=== PATIENT | male | born 1945 | race Caucasian/White ===

== ENCOUNTER 2018-04-16 13:04 | Emergency (ER) | payer MEDICARE, OTHER ==
[2018-04-16] MEDS ORDERED: IBUP-56 PO (13:34)
[2018-04-16] MEDS ORDERED: ZOLP-350 PO (13:34)
[2018-04-16] MEDS ORDERED: MELA1TAB2 PO (13:34)
[2018-04-16] MEDS ORDERED: TRAM-420 PO (13:34)
[2018-04-16] MEDS ORDERED: OXYC-823 PO (13:34)
[2018-04-16] MEDS ORDERED: SPIR1TAB28 PO (13:34)
[2018-04-16] MEDS ORDERED: ACET-1966 PO (13:34)
--- NOTE | 2018-04-16 13:38 | ER Report ---
History and Physical Time Seen By MD: 13:10 Hx. of Stated Complaint: PATIENT REPORTS THAT HE HAS BEEN SHORT OF BREATH FOR THE LAST 3-4 MONTHS AND IS DEALING WITH CHRONIC PAIN HPI/ROS CHIEF COMPLAINT: Not feeling well HISTORY OF PRESENT ILLNESS: 73-year-old male patient presents to emergency room via EMS with point not feeling well. Patient states when he gets here that he actually has no complaints at all. He states that he has pain to the right lower leg, right hip, right knee and back. Patient states that he has chronic pain for which he takes medicine for. He states that he was staying in bed just because he was having some pain and not feeling well. Patient was unaware that his family was calling EMS. He states he did not want to come to the emergency room. He denies having any fevers, chills, nausea, vomiting or diarrhea. Patient does have difficulty with breathing when he lays flat. Patient states that he did have hip surgery in December of this year. Patient currently rates his pain a 6 out of 10, he states his pain is typically a 5-7 out of 10. REVIEW OF SYSTEMS: Respiratory: No cough, no dyspnea. Cardiovascular: No chest pain, no palpitations. Gastrointestinal: No vomiting, no abdominal pain. Musculoskeletal: No back pain. Allergies: Coded Allergies: codeine (Verified Allergy, Unknown, 04/16/18) Home Meds Reported Medications Ibuprofen (IBUPROFEN) 200 Mg Tablet, 1 TAB PO Q6H, TAB 04/16/18 Acetaminophen (TYLENOL) 325 Mg Tablet, 325 MG PO, TAB 18 Melatonin/Pyridoxine Hcl (B6) (MELATONIN 10 MG TABLET) 1 Each Tab.mphase, 1 EACH PO 18 Spironolact/Hydrochlorothiazid (SPIRONOLACTONE-HCTZ 25-25 TAB) 1 Each Tablet, 1 EACH PO QDAY, TAB 04/16/18 Oxycodone Hcl (OXYCONTIN) 10 Mg Tab.er.12h, 10 MG PO, TAB 18 Zolpidem Tartrate (AMBIEN) 10 Mg Tablet, 1 TAB PO QHS, TAB 18 Tramadol Hcl (TRAMADOL HCL) 50 Mg Tablet, 50-100 MG PO Q4-6H, TAB 04/16/18 Past Medical/Surgical History Patient has a past medical history of hypertension, chronic back, knee and hip pain. Patient has a surgical history of right hip surgery. Reviewed Nurses Notes: Yes Hx Substance Use Disorder: No Hx Alcohol Use: No Constitutional Vital Sign - Last 24 Hours 04/16/18 04/16/18 04/16/18 04/16/18 13:04 13:06 13:08 13:27 Temp 98.8 Pulse 88 85 Resp 18 B/P (MAP) 139/81 (100) 139/81 Pulse Ox 89 92 O2 Delivery Room Air 04/16/18 04/16/18 04/16/18 04/16/18 13:30 13:34 14:00 14:04 Pulse 81 76 Resp 13 12 B/P (MAP) 110/65 (80) 117/73 (88) Pulse Ox 92 95 Physical Exam General Appearance: The patient is alert, has no immediate need for airway protection and no current signs of toxicity. Respiratory: Chest is non tender, lungs are clear to auscultation. Cardiac: regular rate and rhythm Gastrointestinal: Abdomen is soft and non tender, no masses, bowel sounds normal. Musculoskeletal: Neck: Neck is supple and non tender. Extremities have full range of motion and are non tender. Skin: No rashes or lesions. DIFFERENTIAL DIAGNOSIS: After history and physical exam differential diagnosis was considered forshortness of breath including but not limited to pulmonary infectious process, COPD, asthma, pulmonary embolus and congestive heart failure. Included in the differential is withdrawal from narcotics. Medical Decision Making Data Points Result Diagram: 04/16/18 1330 04/16/18 1330 Laboratory Hematology Test 04/16/18 13:30 Red Blood Count 4.91 M/uL (4.00-5.60) Mean Corpuscular Volume 82.2 fL (80.0-96.0) Mean Corpuscular Hemoglobin 28.0 pg (26.0-33.0) Mean Corpuscular Hemoglobin Concent 34.0 g/dL (32.0-36.0) Red Cell Distribution Width 14.7 % (11.5-14.5) Mean Platelet Volume 7.6 fL (7.2-11.1) Neutrophils (%) (Auto) 87.3 % (39.4-72.5) Lymphocytes (%) (Auto) 6.9 % (17.6-49.6) Monocytes (%) (Auto) 4.6 % (4.1-12.4) Eosinophils (%) (Auto) 0.4 % (0.4-6.7) Basophils (%) (Auto) 0.8 % (0.3-1.4) Nucleated RBC Relative Count (auto) 0.0 /100WBC Neutrophils # (Auto) 16.5 K/uL (2.0-7.4) Lymphocytes # (Auto) 1.3 K/uL (1.3-3.6) Monocytes # (Auto) 0.9 K/uL (0.3-1.0) Eosinophils # (Auto) 0.1 K/uL (0.0-0.5) Basophils # (Auto) 0.1 K/uL (0.0-0.1) Nucleated RBC Absolute Count (auto) 0.00 K/uL Peripheral Blood Smear Yes Y/N Sodium Level 137 mmol/L (137-145) Potassium Level 4.0 mmol/L (3.5-5.0) Chloride Level 99 mmol/L (98-107) Carbon Dioxide Level 24 mmol/L (22-30) Blood Urea Nitrogen 25 mg/dl (9-21) Creatinine 1.10 mg/dl (0.66-1.25) Glomerular Filtration Rate Calc > 60.0 Random Glucose 148 mg/dl (75-110) Calcium Level 10.0 mg/dl (8.4-10.2) Total Bilirubin 0.8 mg/dl (0.2-1.3) Aspartate Amino Transf (AST/SGOT) 24 U/L (0-35) Alanine Aminotransferase (ALT/SGPT) 33 U/L (0-56) Alkaline Phosphatase 71 U/L (0-126) Troponin I < 0.012 ng/ml B-Type Natriuretic Peptide 45 pg/ml (0-100) Total Protein 7.6 gm/dl (6.3-8.2) Albumin 4.2 g/dl (3.5-5.0) Chemistry Test 04/16/18 13:30 White Blood Count 19.0 k/uL (4.5-11.0) Red Blood Count 4.91 M/uL (4.00-5.60) Hemoglobin 13.7 g/dL (14.0-18.0) Hematocrit 40.4 % (42.0-52.0) Mean Corpuscular Volume 82.2 fL (80.0-96.0) Mean Corpuscular Hemoglobin 28.0 pg (26.0-33.0) Mean Corpuscular Hemoglobin Concent 34.0 g/dL (32.0-36.0) Red Cell Distribution Width 14.7 % (11.5-14.5) Platelet Count 250 K/uL (150-450) Mean Platelet Volume 7.6 fL (7.2-11.1) Neutrophils (%) (Auto) 87.3 % (39.4-72.5) Lymphocytes (%) (Auto) 6.9 % (17.6-49.6) Monocytes (%) (Auto) 4.6 % (4.1-12.4) Eosinophils (%) (Auto) 0.4 % (0.4-6.7) Basophils (%) (Auto) 0.8 % (0.3-1.4) Nucleated RBC Relative Count (auto) 0.0 /100WBC Neutrophils # (Auto) 16.5 K/uL (2.0-7.4) Lymphocytes # (Auto) 1.3 K/uL (1.3-3.6) Monocytes # (Auto) 0.9 K/uL (0.3-1.0) Eosinophils # (Auto) 0.1 K/uL (0.0-0.5) Basophils # (Auto) 0.1 K/uL (0.0-0.1) Nucleated RBC Absolute Count (auto) 0.00 K/uL Peripheral Blood Smear Yes Y/N Glomerular Filtration Rate Calc > 60.0 Calcium Level 10.0 mg/dl (8.4-10.2) Total Bilirubin 0.8 mg/dl (0.2-1.3) Aspartate Amino Transf (AST/SGOT) 24 U/L (0-35) Alanine Aminotransferase (ALT/SGPT) 33 U/L (0-56) Alkaline Phosphatase 71 U/L (0-126) Troponin I < 0.012 ng/ml B-Type Natriuretic Peptide 45 pg/ml (0-100) Total Protein 7.6 gm/dl (6.3-8.2) Albumin 4.2 g/dl (3.5-5.0) EKG/Imaging EKG Interpretation 12 lead EKG: Rhythm: Sinus rhythm with PVCs, ventricular rate of 85 bpm [place]: normal QRS: normal ST segments: normal Imaging Examination: CHEST PA AND LAT Comparison: None. History: Respiratory distress. Findings: No consolidation, nodule, or peribronchial inflammation. No pneumothorax, edema, or effusion. Cardiac and hilar contour size is normal. Osseous structures are intact. IMPRESSION: No evidence of acute cardiopulmonary disease. Report Dictated By: Harish Strauss MD at 04/16/2018 2:00 PM Report E-Signed By: Harish Strauss MD at 04/16/2018 2:04 PM ED Course/Re-evaluation ED Course Patient was admitted to an exam room, history and physical were obtained. Differential diagnoses were considered. On examination lungs are clear, heart is regular, abdomen soft nontender. A CBC, CMP, troponin, EKG, chest x-ray, BMP were done. Lab results were unremarkable except patient did have an elevated white count of 19,000. I believe this is likely secondary to the margination caused by stress response, likely due to not taking his medications as prescribed. I discussed the findings with the patient. Family had stated that the patient was trying not to take his narcotic pain medication, stating that his last prescription was given on April 05 and that was supposed to last him until he can get in to see pain management. In looking at the [place] [employer] prescription drug monitoring program patient received 120 tablets of 10 mg oxycodone. Looking back through your been getting that approximately 20th of every month for the past several months with getting 2 prescriptions in February for 120 tablets of 10 mg oxycodone. With him receiving the prescription there is no reason that he should be out of his medication. We will go ahead and discharge patient home at this time. He is follow-up with his primary care provider and I would encourage him to do that in the next 2-5 days. I discussed this with the patient and his family and they verbalized understanding and agreement with plan. Decision to Disposition Date: Apr 16, 2018 Decision to Disposition Time: 14:14 Depart Departure Latest Vital Signs Vital Signs Date Time Temp Pulse Resp B/P (MAP) Pulse Ox O2 Delivery O2 Flow Rate FiO2 04/16/18 14:04 76 12 95 04/16/18 14:00 117/73 (88) 04/16/18 13:27 98.8 04/16/18 13:08 Room Air Impression: Primary Impression: Chronic pain Condition: Improved Disposition: HOME OR SELF-CARE Patient Instructions: Chronic Back Pain (ED) Additional Instructions: Continue with your current medications. Follow up with your primary care provider in the next 3-5 days. Limit activity by pain. Get plenty of rest. Problem Qualifiers Primary Impression: Chronic pain Chronic pain type: chronic pain syndrome Qualified Codes: G89.4 - Chronic pain syndrome FAUZIA ROBLERO Apr 16, 2018 13:38
[2018-04-16 13:39] LABS: PLATELET COUNT, AUTOMATED 250 K/uL (150-450)
[2018-04-16 14:00] VITALS: BP 117/73
--- NOTE | 2018-04-16 14:07 | RADIOLOGY IMAGING REPORT ---
FACILITY: [facility] PATIENT NAME: Mert Roberts : 1945 MR: [id number] V: [id number] EXAM DATE: ORDERING PHYSICIAN: FAUZIA ROBLERO TECHNOLOGIST: Location: [facility] Patient: Mert Roberts : 1945 Visit/Account:[id number] Date of Sevice: 04/16/2018 Examination: CHEST PA AND LAT Comparison: None. History: Respiratory distress. Findings: No consolidation, nodule, or peribronchial inflammation. No pneumothorax, edema, or effusio n. Cardiac and hilar contour size is normal. Osseous structures are intact. IMPRESSION: No evidence of acute cardiopulmonary disease. Report Dictated By: Harish Strauss MD at 04/16/2018 2:00 PM Report E-Signed By: Harish Strauss MD at 04/16/2018 2:04 PM [id number]
--- NOTE | 2018-04-16 18:33 | EKG ---
[place] [facility] [place] DULCE MELGAR : [id number] MR: [id number] V: [id number] EXAM DATE: ORDERING PHYSICIAN: FAUZIA ROBLERO TECHNOLOGIST: SHEEBA Rain Reason : SOB Blood Pressure : / mmHG Vent. Rate : 085 BPM Atrial Rate : 085 BPM P-R Int : 184 ms QRS Dur : 096 ms QT Int : 374 ms P-R-T Axes : 012 -16 006 degrees QTc Int : 445 ms Sinus rhythm with premature atrial complexes Left axis RSR' or QR pattern in V1 suggests right ventricular conduction delay Borderline ECG No previous ECGs available Confirmed by JORGE GOODE ([id number] on 04/16/2018 6:47:34 PM Referred By: ANNIKA Confirmed By:JORGE GOODE
== END 2018-04-16 14:27 | disposition home or self-care (01) ==
LOC: ER 13:12
DX: G89.4 Chronic pain syndrome (principal)
CPT/HCPCS: 36415; 71046; 82040; 82247; 82310; 82374; 82435; 82565; 82947; 83880; 84075; 84132; 84155; 84295; 84450; 84460; 84484; 84520; 85025; 93005; 99283